=== PATIENT | female | born 1990 | race African-American/Black ===

== ENCOUNTER → 2020-12-16 16:04 | Outpatient (BNVA) | payer OTHER, SELFPAY | PROVIDERS: PCP Pediatrics; Referring Provider Pediatrics; Visit Provider Physician Assistant ==

== ENCOUNTER → 2020-12-27 08:03 | Outpatient (BNVA) | payer OTHER, SELFPAY | PROVIDERS: PCP Pediatrics; Visit Provider Surgery ==

== ENCOUNTER 2020-12-30 15:57 | Outpatient (REF) | payer OTHER, SELFPAY ==
--- NOTE | ~2020-12-30 | XR_ITS ---
EXAMINATION: XR CHEST CLINICAL INFORMATION: Obesity COMPARISON: None TECHNIQUE: 2 views of the chest were obtained. FINDINGS: No significant abnormality is noted involving the heart, lungs, mediastinum, bony thorax or soft tissues. XR/XR chest 2V IMPRESSION: Unremarkable examination.
[2020-12-30 17:45] LABS: MANUAL DIFF FLAG NO
[2020-12-30 18:02] LABS: Estimated Average Glucose 103 mg/dL; Hemoglobin A1c % 5.2 %
[2020-12-30 18:10] LABS: Basophils Absolute Auto 0.1 X10*3/uL (0.0-0.2); Basophils Percent Auto 0.5 % (0-2); Eosinophils Absolute Auto 0.1 X10*3/uL (0.0-0.4); Eosinophils Percent Auto 1.5 % (0-4); Hematocrit 31.6 % (37-47); Imm Gran Abs Auto 0.02 X10*3/uL (0.00-0.03); Imm Gran Pct Auto 0.2 % (0.0-0.4); Lymphocytes Absolute Auto 2.8 X10*3/uL (1.2-4.9); Lymphocytes Percent Auto 29.2 % (20-40); Mean Corpuscular HGB Conc 31.6 g/dl (31.0-35.0); Mean Corpuscular Hemoglobin 21.6 pg (27.0-33.0); Mean Corpuscular Volume 68.1 fL (80-98); Mean Platelet Volume 11.1 fL (9.4-12.3); Monocytes Absolute Auto 0.8 X10*3/uL (0.1-1.2); Neutrophils Absolute Auto 5.8 X10*3/uL (2.0-8.3); Neutrophils Percent Auto 60.6 % (45-73); Platelet Count 378 X10*3/uL (160-400); Red Blood Count 4.64 X10*6/uL (4.20-5.50); Red Cell Distribution Width 16.2 % (11.0-16.0); White Blood Count 9.5 X10*3/uL (4.8-10.8)
[2020-12-30 18:15] LABS: Alanine Aminotransferase 19 U/L (0-31); Albumin Level 4.2 g/dL (3.5-5.0); Alkaline Phosphatase 80 U/L (39-117); Anion Gap 13 (12-20); Aspartate Amino Transferase 20 U/L (5-31); Bilirubin Total 0.2 mg/dL (0.0-1.0); Blood Urea Nitrogen 13 mg/dL (9-16); C Reactive Protein 0.66 mg/dL (< or = 0.50); Calcium 9.2 mg/dL (8.4-10.2); Carbon Dioxide 26 mmol/L (22-29); Chloride 107 mmol/L (96-108); Cholesterol 147 mg/dL; Estimated Glomerular Filt Rate > 60; Glucose Random 106 mg/dL (60-115); HDL Cholesterol 40 mg/dL; Iron 22 mcg/dL (30-160); LDL Cholesterol Calculated 92 mg/dl; Percent Iron Saturation 5 % (15-50); Potassium 4.1 mmol/L (3.3-5.1); Sodium 142 mmol/L (135-145); Total Iron Binding Capacity 451 mcg/dL (228-428); Total Protein 7.5 g/dL (6.5-8.0); Triglycerides 76 mg/dL; Unsaturated Iron Binding 429 ug/dL
[2020-12-30 18:40] LABS: Ferritin 10 ng/mL (10-122); TSH reflex Free T4 0.75 uIU/mL (0.32-4.0); Vitamin D 25-OH Total 13.8 ng/mL (>30)
[2020-12-30 18:46] LABS: Vitamin B12 489 pg/mL (200-900)
[2021-01-02 11:56] LABS: Insulin Level Total 51.2 uIU/mL
[2021-01-02 13:32] LABS: Calcium (PTHI) 9.3 mg/dL (8.6-10.2); PTHI 92 pg/mL (14-64)
[2021-01-03 02:48] LABS: Zinc 60 mcg/dL (60-130)
[2021-01-04 16:12] LABS: Vitamin B1 <6 nmol/L (8-30)
[2021-01-04 22:41] LABS: Vitamin A 31 mcg/dL (38-98)
== END 2020-12-30 15:58 | disposition home or self-care (01) ==
LOC: HO.LAB 15:57
PROVIDERS: PCP Pediatrics; Visit Provider Surgery
DX: E66.01 Morbid (severe) obesity due to excess calories (principal); K21.9 Gastro-esophageal reflux disease without esophagitis
CPT/HCPCS: 36415; 71046; 80053; 80061; 82306; 82607; 82728; 82746; 83036; 83525; 83540; 83970; 84425; 84443; 84590; 84630; 85025; 86140

== ENCOUNTER → 2021-01-13 14:00 | Outpatient (BNVA) | payer OTHER, SELFPAY | PROVIDERS: PCP Pediatrics; Visit Provider Surgery ==

== ENCOUNTER → 2021-01-24 08:16 | Outpatient (BNVA) | payer OTHER, SELFPAY | PROVIDERS: PCP Pediatrics; Visit Provider Dietitian, Registered | DX: E66.01 Morbid (severe) obesity due to excess calories (principal) | CPT/HCPCS: 97802 ==

== ENCOUNTER → 2021-02-14 08:17 | Outpatient (BNVA) | payer OTHER, SELFPAY | PROVIDERS: PCP Pediatrics; Visit Provider Dietitian, Registered ==

== ENCOUNTER → 2021-02-22 07:29 | Outpatient (BNVA) | payer OTHER, SELFPAY | PROVIDERS: PCP Pediatrics; Visit Provider Surgery ==

== ENCOUNTER 2021-02-28 11:15 | Day surgery (SDC) | payer OTHER, SELFPAY ==
--- NOTE | 2021-02-22 11:45 | ECG_ITS ---
Test Reason : MORBID OBESITY Blood Pressure : / mmHG Vent. Rate : 082 BPM Atrial Rate : 082 BPM P-R Int : 124 ms QRS Dur : 086 ms QT Int : 384 ms P-R-T Axes : 025 019 013 degrees QTc Int : 448 ms Normal sinus rhythm with sinus arrhythmia Normal ECG No previous ECGs available Referred By: Vignesh Morse Electronically Signed By:ZOYA REDDY
[2021-02-24 14:34] VITALS: BMI 42.7
[2021-02-28 11:38] VITALS: BP 121/84; PULSE 74; RESP 16; TEMP 36.6; O2SAT 99
[2021-02-28 11:50] LABS: UPreg QC Valid YES; Urine Pregnancy NEGATIVE (NEGATIVE)
[2021-02-28] MEDS: Lactated Ringers 1,000 ML 100 ML IVCONT (12:09)
--- NOTE | 2021-02-28 14:01 | MHC.SHP ---
Pre-Procedural Eval Section A Date of Service: 02/28/21 The patient is an INPATIENT: No The History & Physical has been completed within 30 days and I have reviewed it.: Yes Section B Chief Complaint: GERD Details of Present Illness: GERD Relevant Family History (Specify if Yes): No Relevant Social History: None Present Medications: see Short Stay Collaborative assessment Medical History: No relevant PMH History of Previous Operations: Relevant previous surgery/procedure and date(s) (Sleeve gastrectomy) Allergies: Allergies Allergy/AdvReac Type Severity Reaction Status Date / Time No Known Allergies Allergy Verified 12/27/20 15:08 Review of Systems Sugical H&P ROS: Negative: Constitution, Cardiovascular, Respiratory, Neurological, Psychiatric, Hem-Onc, Allergic/Immunologic, Gastrointestinal, Genitourinary, Musculoskeletal, Integumentary, Endocrine and Eyes/Ears/Nose/Throat Exam Surgical H&P Exam: Normal: HEENT, Normal: Heart, Normal: Lungs, Normal: Extremities, Normal: Abdomen, Normal: Skin and Normal: Neurological Plan Diagnosis/Plan: Unchanged I have reviewed the history and physical and performed a pertinent physical examination on my patient. No changes have occurred unless specified.
--- NOTE | 2021-02-28 14:46 | HO.ANESPROP2 ---
FORMERLY [facility] Active Problems Active Problems: All Active Problems (Updated 01/19/21 @ 15:54 by Gabriela Thomas, [facility]) Adjustment disorder, unspecified (Acute) Vitamin B1 deficiency (Acute) Vitamin A deficiency (Acute) Vitamin D deficiency (Acute) Anemia (Acute) GERD (gastroesophageal reflux disease) (Acute) Morbid obesity (Acute) Past Medical History Medical History GERD (gastroesophageal reflux disease) Morbid obesity Family History Family History Mother Hypertension Father No problems noted. Son No problems noted. Son No problems noted. Daughter No problems noted. Surgical History Surgical History History of sleeve gastrectomy Social History Social History Alcohol intake: never Patient Tobacco Use Status: Never used Tobacco Use of substances other than those prescribed or required for medical reasons: No Are you DNR?: No Advance Directives: No Advance Directives Information Provided: Yes Meds Allergies Allergy/AdvReac Type Severity Reaction Status Date / Time No Known Allergies Allergy Verified 12/27/20 15:08 Active Medications: Current Medications Generic Name Dose Route Start Last Admin Trade Name Freq PRN Reason Stop Dose Admin Lactated Ringer's 1,000 mls @ 100 mls/hr 02/28/21 11:30 02/28/21 12:09 Lr IVCONT 100 mls/hr .Q10H JOSSELYN Administration Lactated Ringer's 1,000 mls @ 80 mls/hr 02/28/21 14:15 Lr IVCONT .[id number] [facility] [place] Home Medications Medication Instructions Recorded Confirmed Last Taken Type esomeprazole magnesium 40 mg 40 mg PO DAILY 12/27/20 12/27/20 Unknown History capsule,delayed release Exam Exam Date and Time: February 28, 2021 1446 Height,Weight and Vital Signs: Height 5 ft 4 in Weight 249 lb 4 oz Last Vital Signs Temp 97.8 F 02/28/21 11:38 Pulse 74 02/28/21 11:38 Resp 16 02/28/21 11:38 BP 121/84 02/28/21 11:38 Pulse Ox 99 02/28/21 11:38 Pertinent Lab Results Pertinent Lab Results: Laboratory Tests 02/28/21 11:28 Urine Test NEGATIVE Airway Mallampati Class: II TM Dist: >3cm Neck ROM: Full Loose/Missing/Broken Teeth: No Assessment and Plan Assessment Anesthesia Assessment: Anesthesia Plan Discussed and Chart Reviewed Final Anesthetic Review NPO: Yes ASA Class: III Final Preanesthetic Review: No Changes in Pt Med Stat, Meds/Allgs Chart Reviewed, Consent Obtained/Reviewed and Anes Risks/Benef Reviewed Patient Risk: High Procedure Risk: Low Anesthetic Plan Anesthetic Plan: MAC: Disposition: Standard PACU
--- NOTE | 2021-02-28 17:12 | P.BOP_ITS ---
Brief Operative Note Date of Service: 02/28/21 Pre-op diagnosis: GERD, s/p sleeve gastrectomy Post-op diagnosis: same Procedure: PROCEDURE DATE: 02/28/2021 PREOPERATIVE DIAGNOSIS: GERD, s/p sleeve gastrectomy POSTOPERATIVE DIAGNOSIS: Same as above. 1) small hiatal hernia PROCEDURE: Kbumgoow-byklpq-ljeqiciqlety with biopsies Surgeon: Kwadwo Morse M.D.. Ph.D. Roving Can Tender: None Anesthesia: IV sedation Estimated blood loss: Minimal FINDINGS AND PROCEDURE: OPERATIVE INDICATIONS: The patient is a 30 year old female known to me who underwent a laparoscopic sleeve gastrectomy. The patient had remarkable weight loss so far and had a completely uneventful recovery. The patient was doing very well but has recently been complaining of GERD. Based on this information I recommended an upper endoscopy to evaluate the patient's symptoms. Risks and complications of the surgery were discussed with the patient in advance particularly the possibility of perforation or bleeding that may require surgi sylvie intervention. The patient understood the risks and was in agreement with the plan. PROCEDURE: After informed consent was obtained by the patient, the patient was transferred to the Operating Room and was placed in the supine position. After successful induction of IV sedation, a mouth block was inserted and the patient was placed in the left lateral decubitus position. An upper endoscopy was performed next, the oropharynx and esophagus appeared within the normal limits. There was a small hiatal hernia. The z-line was smooth. Two biopsies were obtained from the distal esophagus 2-3 cm proximal to the GE junction and two additional biopsies from the GE junction. The sleeve was entered and it appeared to be of normal size proximally without redundancy. Distal sleeve was of larger caliber. The sleeve did not extend close to pylorus. There was mild gastritis at distal antrum. There was no stricture or ulcer. Biopsies were obtained from the proximal sleeve as well as the distal antrum. No significant bleeding was noted from any of the biopsy sites. The scope was then advanced into the duodenum which appeared to be normal as well. At that point the duodenum and the sleeve were decompressed and the scope was withdrawn from the patient's mouth. The patient extubated and was transferred in stable condition to the Recovery Room for further care. I was present and performed all steps of the procedure. There were no residents to assist with this case. Kwadwo Morse M.D., Ph.D. Surgeon: Vignesh Morse MD Anesthesia: MAC Was an Roving Can Tender used for this Procedure?: No Estimated blood loss (mL): 0 Urine output (mL): 0 (No Salazar to record) Pathology: none sent (1) GEJ x2, distal esophagus x2, proximal sleeve x1, antrum x1) Condition: stable Disposition: PACU
--- NOTE | 2021-02-28 17:50 | HO.ANESPROP2 ---
FORMERLY [facility] Active Problems Active Problems: All Active Problems (Updated 01/19/21 @ 15:54 by Gabriela Thomas, [facility]) Adjustment disorder, unspecified (Acute) Vitamin B1 deficiency (Acute) Vitamin A deficiency (Acute) Vitamin D deficiency (Acute) Anemia (Acute) GERD (gastroesophageal reflux disease) (Acute) Morbid obesity (Acute) Past Medical History Medical History GERD (gastroesophageal reflux disease) Morbid obesity Family History Family History Mother Hypertension Father No problems noted. Son No problems noted. Son No problems noted. Daughter No problems noted. Surgical History Surgical History History of sleeve gastrectomy Social History Social History Alcohol intake: never Patient Tobacco Use Status: Never used Tobacco Use of substances other than those prescribed or required for medical reasons: No Are you DNR?: No Advance Directives: No Advance Directives Information Provided: Yes Meds Allergies Allergy/AdvReac Type Severity Reaction Status Date / Time No Known Allergies Allergy Verified 12/27/20 15:08 Active Medications: Current Medications Generic Name Dose Route Start Last Admin Trade Name Cynthia PRN Reason Stop Dose Admin Lactated Ringer's 1,000 mls @ 100 mls/hr 02/28/21 11:30 02/28/21 12:09 Lr IVCONT 100 mls/hr .Q10H JOSSELYN Administration Lactated Ringer's 1,000 mls @ 80 mls/hr 02/28/21 14:15 Lr IVCONT .[id number] [facility] Home Medications Medication Instructions Recorded Confirmed Last Taken Type esomeprazole magnesium 40 mg 40 mg PO DAILY 12/27/20 12/27/20 Unknown History capsule,delayed release Exam Exam Date and Time: February 28, 2021 1750 Height,Weight and Vital Signs: Height 5 ft 4 in Weight 113.058 kg Last Vital Signs Temp 97.8 F 02/28/21 11:38 Pulse 74 02/28/21 11:38 Resp 16 02/28/21 11:38 BP 121/84 02/28/21 11:38 Pulse Ox 99 02/28/21 11:38 Pertinent Lab Results Pertinent Lab Results: Laboratory Tests 02/28/21 11:28 Urine Test NEGATIVE Airway Mallampati Class: II TM Dist: >3cm Neck ROM: Full Heart: RR Lungs: VTA
[2021-02-28 18:31] VITALS: BP 127/69; PULSE 95; RESP 16; TEMP 36.2; O2SAT 97
--- NOTE | 2021-02-28 18:34 | HO.POSTANES ---
Post Anesthesia Evaluation Post Anesthesia Evaluation Vital Signs: Vital Signs Temp Pulse Resp BP Pulse Ox 02/28/21 11:38 97.8 F 74 16 121/84 99 Anesthesia: General Mental Status: Awake Pain Control: Satisfactory Nausea/Vomiting: None Hydration: Adequate Anesthesia-Related Issues: No Anes. Related Issues
[2021-02-28 18:36] VITALS: BP 99/48; PULSE 95; RESP 16; O2SAT 98
[2021-02-28 18:41] VITALS: BP 103/62; PULSE 94; RESP 16; O2SAT 97
[2021-02-28 18:46] VITALS: BP 106/56; PULSE 98; RESP 18; O2SAT 99
[2021-02-28] MEDS: Acetaminophen 325 MG TABLET 650 MG PO (18:59)
--- NOTE | 2021-02-28 19:00 | PC.NURSE ---
1858 DR. PRINGLE UPDATED PATIENT HEADACHE. NEW ORDERS OBTAINED. MEDICATED PO TYLENOL FOR COMPLAINT 510 HEADACHE
[2021-02-28 19:01] VITALS: BP 99/60; PULSE 80; RESP 18; O2SAT 100
--- NOTE | 2021-02-28 19:18 | PC.NURSE ---
REPORTS HEADACHE IMPROVING TOLERABLE WANTS TO GO HOME. NO NAUSEA
== END 2021-02-28 19:26 | disposition home or self-care (01) ==
PROVIDERS: Nurse Practitioner; PCP Pediatrics; Visit Provider Surgery
PROC: 0DJ08ZZ Inspection of Upper Intestinal Tract, Via Natural or Artificial Opening Endoscopic (ICD-10-PCS; CPT 43235; principal; 2021-02-28 15:30)
DX: K21.9 Gastro-esophageal reflux disease without esophagitis (principal); K44.9 Diaphragmatic hernia without obstruction or gangrene; K29.70 Gastritis, unspecified, without bleeding; Z90.3 Acquired absence of stomach [part of]; E66.01 Morbid (severe) obesity due to excess calories; Z98.84 Bariatric surgery status; Z79.899 Other long term (current) drug therapy
CPT/HCPCS: 43239; 81025; 88305; 88342; 93005; J0330

== ENCOUNTER → 2021-03-14 08:11 | Outpatient (BNVA) | payer OTHER, SELFPAY | PROVIDERS: PCP Pediatrics; Visit Provider Dietitian, Registered | DX: E66.01 Morbid (severe) obesity due to excess calories (principal); Z68.41 Body mass index [BMI] 40.0-44.9, adult | CPT/HCPCS: 97803 ==

== ENCOUNTER → 2021-03-17 07:06 | Outpatient (BNVA) | payer OTHER, SELFPAY | PROVIDERS: PCP Pediatrics; Visit Provider Surgery ==